=== PATIENT | female | born 1990 | race Caucasian/White ===

== ENCOUNTER 2022-05-26 09:06 | Outpatient (CLI) | payer BC | END 2022-05-26 09:07 | disposition home or self-care (01) | LOC: SCSRAD 09:06 | PROVIDERS: ATTEND Nurse Practitioner Family | DX: R05.9 Cough, unspecified (principal) | CPT/HCPCS: 71046 ==

== ENCOUNTER 2023-08-10 13:30 | Outpatient (CLI) | payer BC | END 2023-08-10 13:31 | disposition home or self-care (01) | LOC: BICMAMMO 13:30 | PROVIDERS: ATTEND Family Medicine | DX: N64.4 Mastodynia (principal) | CPT/HCPCS: 77066; G0279 ==

== ENCOUNTER 2024-02-12 08:06 | Outpatient (CLI) | payer BC | END 2024-02-12 08:07 | disposition home or self-care (01) | LOC: BICMAMMO 08:06 | PROVIDERS: ATTEND Family Medicine | DX: N63.21 Unspecified lump in the left breast, upper outer quadrant (principal) | CPT/HCPCS: G0279 ==

== ENCOUNTER 2024-02-24 14:39 | Outpatient (CLI) | payer BC | END 2024-02-24 14:40 | disposition home or self-care (01) | LOC: BICMRI 14:39 | PROVIDERS: ATTEND Surgery | DX: C50.919 Malignant neoplasm of unspecified site of unspecified female breast (principal) | CPT/HCPCS: A9577; C8908 ==